=== PATIENT | female | born 1990 | race Native Hawaiian/Other Pacific Islander ===

== ENCOUNTER 2019-10-09 18:12 | Inpatient (IN) | payer MEDICAID ==
[~2019-10-09] VITALS: Ht 154.9 cm; Wt 63.5 kg
[2019-10-09] MEDS ORDERED: LEVO100 PO (20:16)
[2019-10-09] MEDS ORDERED: DIVA-78 PO (20:16)
[2019-10-09] MEDS ORDERED: QUET25TA PO (20:16)
[2019-10-09] MEDS ORDERED: QUET100T PO (20:16)
[2019-10-09] MEDS ORDERED: ZOLPIDEM TARTRATE 10 MG TABLET PO PRN (21:15)
[2019-10-09] MEDS ORDERED: HALOPERIDOL 5 MG TABLET PO PRN (21:15)
[2019-10-09] MEDS ORDERED: INFLUENZA VIRUS VACCINE QVS 2019-20 (3YR+)/PF 60 MCG/0.5 ML SYRINGE IM ONE (22:00)
[2019-10-10 00:29] VITALS: BP 112/72
[2019-10-10] MEDS ORDERED: BENZOCAINE/MENTHOL LOZENGE MM PRN (05:30)
[2019-10-10] MEDS ORDERED: CloNIDine HCL 0.1 MG TABLET PO PRN (05:30)
[2019-10-10] MEDS ORDERED: MAG HYDROX/AL HYDROX/SIMETH ES 30 ML SUSPENSION UDCUP PO PRN (05:30)
[2019-10-10] MEDS ORDERED: LOPERAMIDE HCL 2 MG CAPSULE PO PRN (05:30)
[2019-10-10] MEDS ORDERED: ALBUTEROL SULFATE HFA 90 MCG/PUFF 8 GM INHALER IH PRN (05:30)
[2019-10-10] MEDS ORDERED: IBUPROFEN 600 MG TABLET PO PRN (05:30)
[2019-10-10] MEDS ORDERED: PETROLATUM,WHITE 28 GM JELLY TP PRN (05:30)
[2019-10-10] MEDS ORDERED: ONDANSETRON HCL 4 MG TABLET PO PRN (05:30)
[2019-10-10] MEDS ORDERED: MAGNESIUM HYDROXIDE SUSPENSION 30 ML UDCUP PO PRN (05:30)
[2019-10-10] MEDS ORDERED: ACETAMINOPHEN 325 MG TABLET PO PRN (05:30)
[2019-10-10] MEDS ORDERED: BACITRACIN 28.4 GM OINTMENT TP PRN (05:30)
[2019-10-10] MEDS: LEVOTHYROXINE SODIUM 100 MCG TABLET PO SCH (06:54)
[2019-10-10 08:22] LABS: BASOPHILS % (AUTO) 2.5 % (0.0-2.0); EOSINOPHILS % (AUTO) 7.4 % (1.0-6.0); HEMATOCRIT 41.8 % (36-46); LYMPHOCYTES # (AUTO) 1.8 K/uL (1.0-4.8); LYMPHOCYTES % (AUTO) 31.2 % (22.0-44.0); MEAN CORPUSCULAR HEMOGLOBIN 30.5 pg (26.0-34.0); MEAN CORPUSCULAR HGB CONC 33.4 G/dL (31.0-37.0); MEAN CORPUSCULAR VOLUME 91 fL (80-100); MONOCYTES # (AUTO) 0.5 K/uL (0.1-1.0); MONOCYTES % (AUTO) 8.5 % (2.0-9.0); NEUTROPHILS % (AUTO) 50.4 % (40.0-70.0); PLATELET COUNT (AUTO) 401 K/uL (150-450); RED BLOOD CELL COUNT(AUTO) 4.58 MIL/uL (4.00-5.20); RED CELL DISTRIBUTION WIDTH 13.1 % (11.5-14.5)
[2019-10-10 08:32] VITALS: BP 124/74
[2019-10-10] MEDS ORDERED: OMEPRAZOLE 20 MG CAPSULE PO SCH (09:00)
[2019-10-10] MEDS ORDERED: DOCUSATE SODIUM 100 MG CAPSULE PO SCH (09:00)
[2019-10-10 09:28] LABS: HEMOGLOBIN A1C 6.1 % (3.8-5.6)
[2019-10-10 09:42] LABS: ALANINE AMINOTRANSFERASE 37 U/L (12-78); ALBUMIN 3.8 g/dL (3.4-5.0); ALKALINE PHOSPHATASE 64 U/L (46-116); ANION GAP 8 mmol/L (8-16); ASPARTATE AMINOTRANSFERASE 21 U/L (15-37); BILIRUBIN,TOTAL 0.4 mg/dL (0.1-1.0); CALCIUM, TOTAL 9.6 mg/dL (8.8-10.5); CARBON DIOXIDE 28 mmol/L (22-29); CHLORIDE 104 mmol/L (98-107); CHOL/HDL RATIO 3.2 (3.9-5.7); CHOLESTEROL 157 mg/dL (131-200); CREATININE 0.79 mg/dL (0.60-1.30); GLOMERULAR FILTR. RATE CALC > 60 mL/min (>60); GLUCOSE,RANDOM 84 mg/dL (70-110); HCG,QUANTITATIVE < 1 mIU/mL (0-6); HDL CHOLESTEROL 49 mg/dL (40-60); LDL CHOL (CALC.) 74 mg/dL (0-130); POTASSIUM 4.4 mmol/L (3.5-5.1); SODIUM SERUM 140 mmol/L (136-145); THYROID STIMULATING HORMONE 2.85 uIU/mL (0.36-3.74); TOTAL PROTEIN, SERUM 7.5 g/dL (6.4-8.2); TRIGLYCERIDES 168 mg/dL (15-150); UREA NITROGEN, BLOOD 16 mg/dL (7-18)
[2019-10-10 12:28] VITALS: BP 118/76
[2019-10-10 16:07] VITALS: BP 122/78
[2019-10-10] MEDS: RisperiDONE 1 MG TABLET PO SCH (16:29)
[2019-10-10] MEDS: LORazepam 2 MG TABLET PO PRN (20:00)
[2019-10-10] MEDS ORDERED: DIVALPROEX SODIUM 500 MG DR TABLET PO SCH (21:00)
[2019-10-10] MEDS: DIVALPROEX SODIUM 500 MG DR TABLET PO SCH (21:00)
[2019-10-11 05:02] VITALS: BP 118/72
[2019-10-11] MEDS: LEVOTHYROXINE SODIUM 100 MCG TABLET PO SCH (06:38)
[2019-10-11 08:14] VITALS: BP 128/73
[2019-10-11] MEDS: DIVALPROEX SODIUM 500 MG DR TABLET PO SCH ×2 (08:15→16:43)
[2019-10-11] MEDS: RisperiDONE 1 MG TABLET PO SCH ×2 (08:16→16:43)
[2019-10-11 16:15] VITALS: BP 101/65
[2019-10-12 03:40] VITALS: BP 107/86
[2019-10-12] MEDS: LEVOTHYROXINE SODIUM 100 MCG TABLET PO SCH (06:17)
[2019-10-12 08:17] VITALS: BP 113/68
[2019-10-12] MEDS: DIVALPROEX SODIUM 500 MG DR TABLET PO SCH ×2 (08:37→17:00)
[2019-10-12] MEDS: RisperiDONE 1 MG TABLET PO SCH ×2 (08:37→17:11)
[2019-10-12 16:09] VITALS: BP 120/77
[2019-10-12] MEDS ORDERED: LORazepam 2 MG/ML VIAL ONE (23:11)
[2019-10-12] MEDS ORDERED: DiphenhydrAMINE HCL 50 MG/ML VIAL IM ONE (23:15)
[2019-10-12] MEDS ORDERED: LORazepam 2 MG/ML VIAL IM ONE (23:15)
[2019-10-13] MEDS: LEVOTHYROXINE SODIUM 100 MCG TABLET PO SCH (06:51)
[2019-10-13] MEDS: DIVALPROEX SODIUM 500 MG DR TABLET PO SCH ×2 (08:37→16:33)
[2019-10-13] MEDS: RisperiDONE 1 MG TABLET PO SCH ×2 (08:37→16:33)
[2019-10-13 08:46] VITALS: BP 109/69
[2019-10-13 16:47] VITALS: BP 100/60
[2019-10-14] MEDS: LEVOTHYROXINE SODIUM 100 MCG TABLET PO SCH (06:47)
[2019-10-14 06:51] VITALS: BP 122/75
[2019-10-14] MEDS: RisperiDONE 1 MG TABLET PO SCH ×2 (08:06→16:43)
[2019-10-14] MEDS: DIVALPROEX SODIUM 500 MG DR TABLET PO SCH ×2 (08:06→16:43)
[2019-10-14 08:27] VITALS: BP 109/75
[2019-10-14 16:09] VITALS: BP 112/66
[2019-10-15 05:42] VITALS: BP 101/69
[2019-10-15] MEDS: LEVOTHYROXINE SODIUM 100 MCG TABLET PO SCH (07:13)
[2019-10-15 08:05] VITALS: BP 111/61
[2019-10-15] MEDS: DIVALPROEX SODIUM 500 MG DR TABLET PO SCH ×2 (08:31→16:20)
[2019-10-15] MEDS: RisperiDONE 1 MG TABLET PO SCH ×2 (08:31→16:20)
[2019-10-15] MEDS: LORazepam 2 MG TABLET PO PRN (10:58)
[2019-10-15 16:08] VITALS: BP 111/77
[2019-10-16 01:08] VITALS: BP 87/63
[2019-10-16] MEDS: LEVOTHYROXINE SODIUM 100 MCG TABLET PO SCH (06:21)
[2019-10-16 06:42] VITALS: BP 102/63
[2019-10-16] MEDS: RisperiDONE 1 MG TABLET PO SCH (08:36)
[2019-10-16] MEDS: DIVALPROEX SODIUM 500 MG DR TABLET PO SCH (08:36)
[2019-10-16] MEDS ORDERED: RISP1 PO (10:00)
[2019-10-16] MEDS ORDERED: DIVA-78 PO (10:00)
== END 2019-10-16 15:35 | disposition home or self-care (01) | DRG 753 ==
LOC: B2S 19:00
PROVIDERS: ADMIT Psychiatry & Neurology Psychiatry; ATTEND Psychiatry & Neurology Psychiatry
DX: F31.9 Bipolar disorder, unspecified (principal); R00.0 Tachycardia, unspecified; E03.9 Hypothyroidism, unspecified; F14.90 Cocaine use, unspecified, uncomplicated; F41.9 Anxiety disorder, unspecified; G47.00 Insomnia, unspecified; F17.200 Nicotine dependence, unspecified, uncomplicated; Z28.21 Immunization not carried out because of patient refusal; Z88.0 Allergy status to penicillin
CPT/HCPCS: 83036; 84439; 84443; 87081; 90686; J1200; J2060; J3230

== ENCOUNTER 2023-12-19 20:11 | Inpatient (IN) | payer MEDICAID, OTHER ==
[~2023-12-19] VITALS: Ht 154.9 cm; Wt 75.9 kg
[~2023-12-19 20:11] MED LIST: DIVA-112 PO; LEVO100 PO; RISP1TAB48 PO
[2023-12-19 20:46] VITALS: BP 129/93; PULSE 84; RESP 17; TEMP 97.4
[2023-12-19] MEDS: PNEUMOCOCCAL VACCINE POLYVALENT 0.5 ML SYRINGE [PPSV23] IM. ONE (21:30)
[2023-12-19 21:55] LABS: GLUCOMETER DEV NAME(LOC) POC.BV; POC SARS-COV2 AG, FIA NEGATIVE (NEGATIVE)
[2023-12-19] MEDS ORDERED: HALOPERIDOL 5 MG TABLET PO PRN (22:00)
[2023-12-19] MEDS ORDERED: LORazepam 2 MG TABLET PO PRN (22:00)
[2023-12-19] MEDS ORDERED: ZOLPIDEM TARTRATE 10 MG TABLET PO PRN (22:00)
[2023-12-19 22:20] VITALS: BP 145/95; PULSE 77; RESP 18; TEMP 97.8
[2023-12-20 08:17] LABS: BASOPHILS % (AUTO) 1.2 % (0.0-2.0); EOSINOPHILS % (AUTO) 4.5 % (1.0-6.0); HEMATOCRIT 39.1 % (36-46); HEMOGLOBIN 13.1 g/dL (12.0-16.0); LYMPHOCYTES # (AUTO) 1.9 K/uL (1.0-4.8); LYMPHOCYTES % (AUTO) 28.6 % (22.0-44.0); MEAN CORPUSCULAR HEMOGLOBIN 30.8 pg (26.0-34.0); MEAN CORPUSCULAR HGB CONC 33.4 G/dL (31.0-37.0); MEAN CORPUSCULAR VOLUME 92 fL (80-100); MONOCYTES # (AUTO) 0.6 K/uL (0.1-1.0); MONOCYTES % (AUTO) 9.4 % (2.0-9.0); NEUTROPHILS # (AUTO) 3.8 K/uL (1.8-7.7); NEUTROPHILS % (AUTO) 56.3 % (40.0-70.0); PLATELET COUNT (AUTO) 419 K/uL (150-450); RED BLOOD CELL COUNT(AUTO) 4.24 MIL/uL (4.00-5.20); RED CELL DISTRIBUTION WIDTH 13.6 % (11.5-14.5); WHITE BLOOD COUNT (AUTO) 6.7 K/uL (4.5-11.0)
[2023-12-20 08:20] LABS: HEMOGLOBIN A1C 6.2 % (3.8-5.6)
[2023-12-20 08:27] VITALS: BP 107/60; PULSE 67; RESP 17; TEMP 97.9; O2SAT 97
[2023-12-20 08:33] LABS: LITHIUM < 0.20 mmol/L (0.60-1.20)
[2023-12-20 08:39] LABS: ALANINE AMINOTRANSFERASE 40 U/L (12-78); ALBUMIN 3.2 g/dL (3.4-5.0); ALKALINE PHOSPHATASE 57 U/L (46-116); ANION GAP 7 mmol/L (8-16); ASPARTATE AMINOTRANSFERASE 26 U/L (15-37); BILIRUBIN,TOTAL 0.6 mg/dL (0.1-1.0); CALCIUM, TOTAL 8.9 mg/dL (8.8-10.5); CARBON DIOXIDE 26 mmol/L (22-29); CHLORIDE 106 mmol/L (98-107); CHOL/HDL RATIO 2.8 (3.9-5.7); CHOLESTEROL 149 mg/dL (131-200); CREATININE 0.92 mg/dL (0.60-1.30); FREE T4 (FREE THYROXINE) 1.19 ng/dL (0.76-1.46); GLOMERULAR FILTR. RATE CALC > 60 mL/min (>60); GLUCOSE,RANDOM 93 mg/dL (70-110); HCG,QUANTITATIVE < 1 mIU/mL (0-6); HDL CHOLESTEROL 54 mg/dL (40-60); LDL CHOL (CALC.) 76 mg/dL (0-130); POTASSIUM 3.6 mmol/L (3.5-5.1); SODIUM SERUM 139 mmol/L (136-145); T4 (THYROXINE) 8.8 mcg/dL (4.7-13.3); THYROID STIMULATING HORMONE 2.13 uIU/mL (0.36-3.74); TOTAL PROTEIN, SERUM 7.3 g/dL (6.4-8.2); TRIGLYCERIDES 94 mg/dL (15-150); UREA NITROGEN, BLOOD 11 mg/dL (7-18)
[2023-12-20] MEDS ORDERED: CloNIDine HCL 0.1 MG TABLET PO PRN (12:15)
[2023-12-20] MEDS ORDERED: ALBUTEROL SULFATE HFA 90 MCG/PUFF 8 GM INHALER IH PRN (12:15)
[2023-12-20] MEDS ORDERED: BACITRACIN 28 GM OINTMENT TP PRN (12:15)
[2023-12-20] MEDS ORDERED: MAGNESIUM HYDROXIDE SUSPENSION 30 ML UDCUP PO PRN (12:15)
[2023-12-20] MEDS ORDERED: ONDANSETRON HCL 4 MG TABLET PO PRN (12:15)
[2023-12-20] MEDS ORDERED: IBUPROFEN 600 MG TABLET PO PRN (12:15)
[2023-12-20] MEDS ORDERED: MAG HYDROX/ALUMINUM HYD/SIMETH ES 30 ML SUSPENSION UDCUP PO PRN (12:15)
[2023-12-20] MEDS ORDERED: OMEPRAZOLE 20 MG CAPSULE PO PRN (12:15)
[2023-12-20] MEDS ORDERED: ACETAMINOPHEN 325 MG TABLET PO PRN (12:15)
[2023-12-20] MEDS ORDERED: PETROLATUM,WHITE 28 GM JELLY TP PRN (12:15)
[2023-12-20] MEDS ORDERED: BENZOCAINE/MENTHOL LOZENGE PO PRN (12:15)
[2023-12-20] MEDS ORDERED: LOPERAMIDE HCL 2 MG CAPSULE PO PRN (12:15)
[2023-12-20] MEDS ORDERED: DOCUSATE SODIUM 100 MG CAPSULE PO PRN (12:15)
[2023-12-20] MEDS: ARIPiprazole 10 MG TABLET PO SCH (12:49)
[2023-12-20 20:59] VITALS: BP 106/73; PULSE 65; RESP 18; TEMP 97.4; O2SAT 97
[2023-12-21] MEDS: LEVOTHYROXINE SODIUM 100 MCG TABLET PO SCH (06:27)
[2023-12-21 09:10] VITALS: BP 104/60; PULSE 70; RESP 18; TEMP 97.9; O2SAT 95
[2023-12-21 20:46] VITALS: BP 109/71; PULSE 68; RESP 17; TEMP 97.7; O2SAT 98
[2023-12-22 08:31] VITALS: BP 109/60; PULSE 63; RESP 17; TEMP 97.8; O2SAT 97
[2023-12-22] MEDS ORDERED: ARIP10TA38 PO ×2 (11:48→13:09)
== END 2023-12-22 12:50 | disposition home or self-care (01) | DRG 885 ==
LOC: B2S 21:54
PROVIDERS: ADMIT Psychiatry & Neurology Child & Adolescent Psychiatry; ATTEND Psychiatry & Neurology Child & Adolescent Psychiatry
DX: F31.4 Bipolar disorder, current episode depressed, severe, without psychotic features (principal); E03.9 Hypothyroidism, unspecified; I10 Essential (primary) hypertension; F41.9 Anxiety disorder, unspecified; Z20.822 Contact with and (suspected) exposure to COVID-19; G47.00 Insomnia, unspecified; F14.90 Cocaine use, unspecified, uncomplicated; Z88.0 Allergy status to penicillin; Z72.0 Tobacco use
CPT/HCPCS: 80053; 80061; 80178; 83036; 84436; 84439; 84443; 84702; 85025; 90732